=== PATIENT | male | born 1980 | race African-American/Black ===

== ENCOUNTER 2019-12-12 11:18 | Emergency (ER) | payer MEDICAID, OTHER ==
[~2019-12-12] VITALS: Ht 175.3 cm; Wt 68.0 kg
[2019-12-12] MEDS ORDERED: cloNIDine HCL 0.1 MG TAB PO ONE (11:30)
[2019-12-12] MEDS ORDERED: ONDANSETRON ODT 4 MG TAB PO ONE (11:30)
[2019-12-12 12:22] VITALS: BP 139/85
== END 2019-12-12 12:29 | disposition home or self-care (01) ==
LOC: ER 11:18 → EDBD 11:18 → ER 12:29
DX: I16.0 Hypertensive urgency (principal); I10 Essential (primary) hypertension; F20.9 Schizophrenia, unspecified; R51 Headache
CPT/HCPCS: 99283; Q0162